=== PATIENT | female | born 1970 | race Caucasian/White ===

== ENCOUNTER 2020-10-13 02:54 | Emergency (ER) | payer OTHER ==
[2020-10-13 03:42] LABS: BASOPHIL 0.8 % (0-2); EOSINOPHIL 1.3 % (0-5); HCT 38.9 % (37.0-47.0); HGB 12.6 g/dl (12.5-16.0); LYMPHOCYTE 27.8 % (15-48); MCH 29.9 pg (25.0-31.0); MCHC 32.4 g/dL (32.0-36.0); MCV 92.4 fL (78.0-100.0); MONOCYTE 9.4 % (0-12); MPV 9.6 fL (6.0-9.5); NEUTROPHIL 60.3 % (41-80); NRBC 0; PLT 315 K/uL (150-400); RBC 4.21 M/uL (4.20-5.40); RDW 12.8 % (11.5-14.0); WBC 5.2 K/uL (4.0-10.5)
[2020-10-13 04:06] LABS: INR 1.11 (0.9-1.2); PROTHROMBIN TIME 13.6 SECONDS (11.4-13.6); PTT 26.6 SECONDS (22.2-34.7)
[2020-10-13 04:12] LABS: ALBUMIN 3.6 g/dL (3.4-5.0); BILIRUBIN - TOTAL 0.3 mg/dL (0.2-1.0); BUN/CREAT RATIO (CALC) 12.3 RATIO; CREATININE 0.57 mg/dL (0.51-0.95); GLOBULIN (CALCULATION) 4.3 g/dL; POTASSIUM 3.9 mmol/L (3.5-5.1); TOTAL PROTEIN 7.9 g/dL (6.4-8.2)
[2020-10-13 07:10] LABS: HCT 41.8 % (37.0-47.0); HGB 13.1 g/dL (12.5-16.0)
[2020-10-13] MEDS ORDERED: CARAFATE1 GM PO (07:20)
[2020-10-13] MEDS ORDERED: PROTONIX 40MG T40 MG PO (07:20)
== END 2020-10-13 07:41 | disposition home or self-care (01) ==
LOC: FER 02:54
PROVIDERS: Emergency Medicine Emergency Medical Services
DX: K92.0 Hematemesis (principal); N32.89 Other specified disorders of bladder; I10 Essential (primary) hypertension; F17.290 Nicotine dependence, other tobacco product, uncomplicated
CPT/HCPCS: 36415; 80053; 82150; 83690; 85014; 85018; 85025; 85610; 85730; 86850; 86900; 86901; 93005; C9113; J7030; Q9967